=== PATIENT | male | born 1985 | race African-American/Black ===

== ENCOUNTER 2022-03-01 10:29 | Emergency (ER) | payer MEDICAID ==
[~2022-03-01] VITALS: Ht 188 cm; Wt 105.0 kg
[2022-03-01 10:33] VITALS: BP 133/93
[2022-03-01 12:15] LABS: CLARITY URINE CLEAR (CLEAR); COLOR URINE YELLOW (YELLOW); KETONES URINE NEGATIVE (NEGATIVE); LEUKOCYTE ESTERASE URINE NEGATIVE (NEGATIVE); NITRITE URINE NEGATIVE (NEGATIVE); OCCULT BLOOD URINE NEGATIVE (NEGATIVE); PH URINE 6.5 (4.5-8.0); PROTEIN URINE NEGATIVE (NEGATIVE); UROBILINOGEN URINE 0.2 E.U./dL (0.2-1.0)
[2022-03-01 12:30] LABS: CHLORIDE 107 mEq/L (98-107)
[2022-03-01] MEDS ORDERED: PENICILLIN G BENZATHINE 2,400,000 UNITS/4ML SYR IM ONE (13:30)
[2022-03-01] MEDS ORDERED: NAPR-681 PO (13:38)
[2022-03-01] MEDS ORDERED: DOXY100T28 PO (13:38)
[2022-03-02 06:12] LABS: HIV SCREEN 4G Non Reactive (Non Reactive)
[2022-03-03 04:10] LABS: NEISSERIA GONORRHOEAE NAA Negative (Negative)
== END 2022-03-01 14:18 | disposition home or self-care (01) ==
LOC: ER 11:02
DX: N48.9 Disorder of penis, unspecified (principal); F20.9 Schizophrenia, unspecified
CPT/HCPCS: 36415; 80048; 81003; 86592; 87389; 87491; 87591; 96372; 99283; J0561